=== PATIENT | male | born 1995 | race Caucasian/White ===

== ENCOUNTER 2021-01-30 20:27 | Emergency (ER) | payer SELFPAY ==
[~2021-01-30] VITALS: Ht 182.9 cm; Wt 122.5 kg
[2021-01-30] MEDS ORDERED: VENTOLIN HFA18 GM INH (21:08)
--- NOTE | 2021-01-31 19:13 | EKG ---
[facility] [address] [facility] [place], [place] [address] Signed Sinus tachycardia Cannot rule out Inferior infarct , age undetermined Abnormal ECG No previous ECGs available Confirmed by STEVEN ABDI MD ([id number] on 01/31/2021 7:12:50 PM Electronically Signed By: STEVEN ABDI MD 01/31/211912 PATIENT NAME: BRADLEY HICKS Electrocardiogram DATE OF : [birth year] PHYSICIAN: STEVEN ABDI MD REPORT #: [id number] REPORT IS CONFIDENTIAL AND NOT TO BE RELEASED WITHOUT AUTHORIZATION
== END 2021-01-31 02:46 | disposition home or self-care (01) ==
LOC: ED 20:27
DX: T40.7X1A Poisoning by cannabis (derivatives), accidental (unintentional), initial encounter (principal); R56.9 Unspecified convulsions; E87.6 Hypokalemia
CPT/HCPCS: 51702; 70450; 71045; 80053; 81001; 83735; 85025; 85610; 85730; 93005; 93010; 99285-25; J3480